=== PATIENT | male | born 1950 | race Caucasian/White ===

== ENCOUNTER 2017-12-19 23:57 | Emergency (ER) | payer OTHER ==
[~2017-12-19] VITALS: Ht 185.4 cm; Wt 113.4 kg
[~2017-12-19 23:57] MED LIST: ASPI81EC PO; CARV25 PO; CARV6.25; CARV6.25 PO; COLE625; COLE625 PO; Coumadin3 MG PO; DUTA.5 PO; ETOD400 PO; EZET10 PO; FURO80 PO; LAMO100 PO; LISINOPRIL; NAPR375 PO; OXYACE5T PO; OXYM.05NI; PARO20 PO; PAROXETINE; POTA20PAC; POTCHL20ER PO; PROACE100 PO; Prinivil10 MG PO; RXPROACE PO; SERT100 PO; WARF2 PO; WARF5; WARF5 PO; ZYPREXA
[2017-12-20] MEDS ORDERED: FURO40 PO (00:29)
[2017-12-20 00:41] LABS: BASOPHILS PERCENT AUTO 1 % (0-2); EOSINOPHILS ABSOLUTE AUTO 0.53 K/mm3 (0.00-0.68); EOSINOPHILS PERCENT AUTO 5 % (0-6); Hematocrit 43.1 % (37.0-53.0); Hemoglobin 14.5 g/dL (13.5-17.5); IMMATURE GRAN ABSOLUTE AUTO 0.08 K/mm3 (0.00-0.10); IMMATURE GRAN PERCENT AUTO 1 % (0-1); LYMPHOCYTES ABSOLUTE AUTO 2.72 K/mm3 (0.84-5.20); LYMPHOCYTES PERCENT AUTO 27 % (21-46); MONOCYTES ABSOLUTE AUTO 1.21 K/mm3 (0.16-1.47); MONOCYTES PERCENT AUTO 12 % (4-13); Mean Corpuscular HGB 31.3 pg (26.0-34.0); Mean Corpuscular HGB Conc 33.6 g/dL (31.5-36.5); Mean Corpuscular Volume 93 fL (80-100); Mean Platelet Volume 9.9 fL (9.1-12.4); NEUTROPHILS PERCENT AUTO 53 % (41-73); Platelet Count 325 K/mm3 (150-400); RDW Coefficient Variation 14.9 % (11.7-14.2); RDW Standard Deviation 51.2 fL (35.1-46.3); Red Blood Cell Count 4.64 M/mm3 (4.30-5.90); White Blood Cell Count 9.94 K/mm3 (4.00-11.30)
[2017-12-20 00:55] LABS: International Normalized Ratio 3.15; Prothrombin Time Results 30.4 Sec (9.7-11.5)
== END 2017-12-20 01:50 | disposition home or self-care (01) ==
LOC: ER 23:57
PROVIDERS: Emergency Medicine
DX: R04.0 Epistaxis (principal); D68.9 Coagulation defect, unspecified; Z88.0 Allergy status to penicillin; Z88.1 Allergy status to other antibiotic agents; Z88.5 Allergy status to narcotic agent; Z88.8 Allergy status to other drugs, medicaments and biological substances; Z79.899 Other long term (current) drug therapy; Z79.82 Long term (current) use of aspirin; Z79.01 Long term (current) use of anticoagulants
CPT/HCPCS: 30905; 36415; 85025; 85610; 99283

== ENCOUNTER 2018-10-14 06:43 | Day surgery (SDC) | payer OTHER ==
[~2018-10-14] VITALS: Ht 185.4 cm; Wt 118.0 kg
[~2018-10-14 06:43] MED LIST changes: -CARV25 PO; +CARV3.125 PO; +FURO40 PO; +Fish Oil 1,0001 EAC3 PO; +METO50ER PO; +Percocet 5-3251 EACH PO; -Prinivil10 MG PO; +Prinivil5 MG PO; -SERT100 PO; +TAMS.4ER PO; +Vitamin D2000 UNIT PO; +WARF4 PO; +Zoloft100 MG PO
[2018-10-14] MEDS ORDERED: ELIQUIS5 MG PO (07:10)
[2018-10-14] MEDS ORDERED: SPIR25 PO (07:14)
--- NOTE | 2018-10-14 14:45 | NUR ---
HOME MEDS PT REPORTED TOOK HOME MEDS EXCEPT FOR ELIQUIS.
--- NOTE | 2018-10-14 18:32 | NUR ---
SUMMARY PT S/P PACER PLACEMENT THIS SHIFT. VSS. MEDICATED ONCE DURING SHIFT FOR LEFT SHOULDER PAIN AND ICE PACK PLACED FOR COMFORT. PT AMBULATED OUT IN [facility]ADRID W/O SLING AND IS SITTING UP IN CHAIR AT THIS TIME W/O SLING. ADVISED NEEDS TO WEAR WHEN OOB. ADVISED PT TO CALL FOR ASSISTANCE GETTING UP TO AVOID USING LUE TO PULL.
--- NOTE | 2018-10-15 04:50 | NUR ---
POD 1 S/P PACER. PT HAS DONE WELL DURING NIGHT. DRESSING TO LCW REMAINS INTACT WITH SMALL AMOUT OF YELLOW DRAINAGE. SLING IN PLACE AND PT EDUCATED RE LIMITED ROM TO LEFT ARM. ICE PACK ON/OFF T/O NIGHT. PT AMBULATES INDEPENDENTLY IN ROOM. PLAN FOR REPEAT EKG TODAY AND DC HOME. CALL LIGHT IN REACH.
[2018-10-15 05:45] LABS: Anion Gap 7 mmol/L (6-16); Blood Urea Nitrogen 19 mg/dL (8-24); CO2, Blood 24 mmol/L (21-32); Calcium, Blood 8.2 mg/dL (8.5-10.1); Chloride, Blood 109 mmol/L (98-108); Glomerular Filtration Rate >60 (60-); Glucose, Blood 101 mg/dL (70-99); Potassium, Blood 4.3 mmol/L (3.5-5.5); Sodium, Blood 140 mmol/L (136-145)
--- NOTE | 2018-10-15 09:46 | NUR ---
DISCHARGED REVIEWED DC PAPERWORK W/PT. VERBALIZED UNDERSTANDING. DC'D IV, CATHETER INTACT.
--- NOTE | 2018-10-15 10:50 | NUR ---
PT LEFT UNIT BY AMBULATION. POSSESSIONS AND DC INSTRUCTIONS IN HAND.
== END 2018-10-15 10:15 | disposition home or self-care (01) ==
LOC: MHTC 06:43 → SURS 11:58 → MHTC 10-15 10:15
PROVIDERS: Internal Medicine Cardiovascular Disease
DX: I49.5 Sick sinus syndrome (principal); I48.91 Unspecified atrial fibrillation; I42.8 Other cardiomyopathies; Z88.1 Allergy status to other antibiotic agents; Z88.0 Allergy status to penicillin; Z88.8 Allergy status to other drugs, medicaments and biological substances; Z79.899 Other long term (current) drug therapy
CPT/HCPCS: 33207; 36415; 71045; 71046; 80048; 93005; 93010; 99152; 99153; C1786; C1898; J0690; J1644; J2250; J3010; J7030; J7040

== ENCOUNTER 2018-11-27 17:17 | Emergency (ER) | payer OTHER ==
[~2018-11-27] VITALS: Ht 185.4 cm; Wt 117.9 kg
[~2018-11-27 17:17] MED LIST changes: +ELIQUIS5 MG PO; +SPIR25 PO
[2018-11-27 18:17] LABS: BASOPHILS ABSOLUTE AUTO 0.11 K/mm3 (0.00-0.23); BASOPHILS PERCENT AUTO 1 % (0-2); EOSINOPHILS PERCENT AUTO 5 % (0-6); Hematocrit 48.5 % (37.0-53.0); Hemoglobin 16.4 g/dL (13.5-17.5); IMMATURE GRAN ABSOLUTE AUTO 0.09 K/mm3 (0.00-0.10); IMMATURE GRAN PERCENT AUTO 1 % (0-1); LYMPHOCYTES ABSOLUTE AUTO 2.37 K/mm3 (0.84-5.20); LYMPHOCYTES PERCENT AUTO 23 % (21-46); MONOCYTES ABSOLUTE AUTO 1.44 K/mm3 (0.16-1.47); MONOCYTES PERCENT AUTO 14 % (4-13); Mean Corpuscular HGB 31.6 pg (26.0-34.0); Mean Corpuscular HGB Conc 33.8 g/dL (31.5-36.5); Mean Corpuscular Volume 93 fL (80-100); Mean Platelet Volume 9.8 fL (9.1-12.4); NEUTROPHILS ABSOLUTE AUTO 5.81 K/mm3 (1.96-9.15); NEUTROPHILS PERCENT AUTO 56 % (41-73); Platelet Count 338 K/mm3 (150-400); RDW Coefficient Variation 14.5 % (11.7-14.2); RDW Standard Deviation 49.6 fL (35.1-46.3); Red Blood Cell Count 5.19 M/mm3 (4.30-5.90); White Blood Cell Count 10.32 K/mm3 (4.00-11.30)
[2018-11-27 18:43] LABS: Alanine Aminotransfer (ALT/SGP 33 U/L (12-78); Albumin, Blood 3.5 g/dL (3.4-5.0); Albumin/Globulin Ratio 0.9 (0.8-1.8); Alk Phos 84 U/L (50-136); Anion Gap 8 mmol/L (6-16); Aspartate Aminotrans (AST/SGOT 15 U/L (12-37); Bilirubin, Total 0.4 mg/dL (0.1-1.0); Blood Urea Nitrogen 29 mg/dL (8-24); CO2, Blood 26 mmol/L (21-32); Calcium, Blood 9.3 mg/dL (8.5-10.1); Chloride, Blood 108 mmol/L (98-108); Globulin, Blood 3.7 g/dL (2.2-4.0); Glomerular Filtration Rate >60 (60-); Glucose, Blood 139 mg/dL (70-99); Potassium, Blood 4.2 mmol/L (3.5-5.5); Sodium, Blood 142 mmol/L (136-145); Total Protein, Blood 7.2 g/dL (6.4-8.2)
== END 2018-11-27 21:35 | disposition home or self-care (01) ==
LOC: ER 17:17
PROVIDERS: Emergency Medicine
DX: I48.91 Unspecified atrial fibrillation (principal); R55 Syncope and collapse; I10 Essential (primary) hypertension; I42.9 Cardiomyopathy, unspecified; Z90.49 Acquired absence of other specified parts of digestive tract
CPT/HCPCS: 36415; 80053; 84484; 85025; 93005; 93010; 99284-25

== ENCOUNTER 2019-07-07 17:53 | Emergency (ER) | payer OTHER ==
[~2019-07-07] VITALS: Ht 185.4 cm; Wt 113.4 kg
[2019-07-07] MEDS ORDERED: Flomax0.4 MG PO (18:26)
[2019-07-07] MEDS ORDERED: ACET500 PO (18:27)
[2019-07-07 18:36] LABS: BASOPHILS ABSOLUTE AUTO 0.07 K/mm3 (0.00-0.23); BASOPHILS PERCENT AUTO 1 % (0-2); EOSINOPHILS ABSOLUTE AUTO 0.04 K/mm3 (0.00-0.68); EOSINOPHILS PERCENT AUTO 1 % (0-6); Hematocrit 53.7 % (37.0-53.0); Hemoglobin 17.7 g/dL (13.5-17.5); IMMATURE GRAN ABSOLUTE AUTO 0.08 K/mm3 (0.00-0.10); IMMATURE GRAN PERCENT AUTO 1 % (0-1); LYMPHOCYTES ABSOLUTE AUTO 1.04 K/mm3 (0.84-5.20); LYMPHOCYTES PERCENT AUTO 15 % (21-46); MONOCYTES ABSOLUTE AUTO 1.76 K/mm3 (0.16-1.47); MONOCYTES PERCENT AUTO 25 % (4-13); Mean Corpuscular HGB 30.7 pg (26.0-34.0); Mean Corpuscular Volume 93 fL (80-100); Mean Platelet Volume 9.5 fL (9.1-12.4); NEUTROPHILS PERCENT AUTO 58 % (41-73); Platelet Count 439 K/mm3 (150-400); RDW Coefficient Variation 13.9 % (11.7-14.2); RDW Standard Deviation 47.6 fL (35.1-46.3); Red Blood Cell Count 5.77 M/mm3 (4.30-5.90); White Blood Cell Count 7.19 K/mm3 (4.00-11.30)
[2019-07-07 18:56] LABS: Prothrombin Time Results 10.7 Sec (9.7-11.5)
[2019-07-07 19:09] LABS: Albumin, Blood 3.5 g/dL (3.4-5.0); Albumin/Globulin Ratio 0.8 (0.8-1.8); Bilirubin, Total 0.3 mg/dL (0.1-1.0); Bun/Creatinine Ratio 13.9 (12.0-20.0); Calcium, Blood 8.5 mg/dL (8.5-10.1); Creatinine, Blood 1.44 mg/dL (0.60-1.20); Globulin, Blood 4.6 g/dL (2.2-4.0); Potassium, Blood 4.1 mmol/L (3.5-5.5); Total Protein, Blood 8.1 g/dL (6.4-8.2)
[2019-07-07 19:15] LABS: Influenza A Negative (NEGATIVE); Influenza B Positive (NEGATIVE)
== END 2019-07-07 19:35 | disposition home or self-care (01) ==
LOC: ER 17:53
PROVIDERS: Physician Assistant
DX: J10.1 Influenza due to other identified influenza virus with other respiratory manifestations (principal); I48.91 Unspecified atrial fibrillation; I10 Essential (primary) hypertension
CPT/HCPCS: 36415; 71046; 80053; 83605; 85025; 85610; 85730; 87040; 87804; 93005; 93010; 99284-25

== ENCOUNTER → 2019-09-03 | Outpatient (CLI) | payer OTHER ==
[~2019-09-03] MED LIST changes: +ACET500 PO; +Flomax0.4 MG PO
[2019-09-04 11:32] LABS: Influenza A Negative (NEGATIVE); Influenza B Negative (NEGATIVE)
== END ==
LOC: LAB SHORT 16:45 → LAB 16:45
PROVIDERS: Family Medicine
DX: R05 Cough (principal)
CPT/HCPCS: 87804

== ENCOUNTER → 2020-07-21 | Outpatient (CLI) | payer OTHER | END | disposition home or self-care (01) | LOC: LAB 18:52 → LAB SHORT 18:52 | DX: L08.9 Local infection of the skin and subcutaneous tissue, unspecified (principal) | CPT/HCPCS: 87070; 87077; 87186; 87205 ==

== ENCOUNTER 2023-03-23 12:03 | Emergency (ER) | payer OTHER ==
[~2023-03-23] VITALS: Ht 160 cm; Wt 117.9 kg
[2023-03-23 12:10] VITALS: BP 116/66
== END 2023-03-23 13:11 | disposition left against medical advice (07) ==
LOC: ER 12:03
DX: R42 Dizziness and giddiness (principal); R55 Syncope and collapse; Z53.21 Procedure and treatment not carried out due to patient leaving prior to being seen by health care provider
CPT/HCPCS: 71046; 99282-25